=== PATIENT | male | born 1935 | race Caucasian/White ===

== ENCOUNTER → 2019-08-18 | Outpatient (CLI) | payer MEDICARE ==
[~2019-08-18] MED LIST: BYSTOLIC 5 MG5 MG PO; COUMADIN 3 MG TA3 MG PO; CRESTOR5 MG PO; DOCUSATE SODIU100 MG PO; EFFIENT5 MG PO; FUROSEMIDE 40 M40 M1 PO; LISINOPRIL5 MG PO; LIVALO4 MG PO; LO-DOSE ASPIRIN81 M1 PO; NITROGLYCERIN0.4 MG SL; PACERONE 200 M200 M1 PO; PRILOSEC20 MG PO
== END ==
LOC: SJCVC 11:20
DX: Z45.02 Encounter for adjustment and management of automatic implantable cardiac defibrillator (principal); I25.10 Atherosclerotic heart disease of native coronary artery without angina pectoris; I42.8 Other cardiomyopathies; I48.0 Paroxysmal atrial fibrillation; I49.5 Sick sinus syndrome; I10 Essential (primary) hypertension; E78.00 Pure hypercholesterolemia, unspecified; G20 Parkinson's disease; Z79.899 Other long term (current) drug therapy

== ENCOUNTER → 2020-02-17 | Outpatient (CLI) | payer OTHER | LOC: SJCVCIMAG 09:45 | PROVIDERS: ATTEND Internal Medicine Cardiovascular Disease | DX: I08.3 Combined rheumatic disorders of mitral, aortic and tricuspid valves (principal); I11.9 Hypertensive heart disease without heart failure; I25.10 Atherosclerotic heart disease of native coronary artery without angina pectoris; I42.8 Other cardiomyopathies; I48.0 Paroxysmal atrial fibrillation; I49.5 Sick sinus syndrome; Z79.899 Other long term (current) drug therapy ==

== ENCOUNTER → 2020-03-02 | Outpatient (CLI) | payer OTHER | LOC: SJCVCIMAG 08:25 | PROVIDERS: ATTEND Internal Medicine Cardiovascular Disease | DX: Z45.02 Encounter for adjustment and management of automatic implantable cardiac defibrillator (principal); I25.10 Atherosclerotic heart disease of native coronary artery without angina pectoris; I44.0 Atrioventricular block, first degree; I49.3 Ventricular premature depolarization; I10 Essential (primary) hypertension; E78.00 Pure hypercholesterolemia, unspecified; I42.8 Other cardiomyopathies; I49.5 Sick sinus syndrome; G20 Parkinson's disease; Z95.810 Presence of automatic (implantable) cardiac defibrillator; Z79.899 Other long term (current) drug therapy ==